=== PATIENT | male | born 1940 | race Caucasian/White ===

== ENCOUNTER 2017-01-31 09:38 | Emergency (ER) | payer MEDICARE, BC ==
[~2017-01-31] VITALS: Ht 170.2 cm; Wt 97.3 kg
[~2017-01-31 09:38] MED LIST: FELODIPINE10 MG PO; GOOD SENSE OMEP20 MG PO; HYDRO PAR25 MG PO; METOPROLOL SUC100 MG PO; SIMVASTATIN20 MG PO
[2017-01-31 09:53] VITALS: TEMP 98.4
[2017-01-31 10:56] LABS: ALANINE AMINOTRANSFERASE 48 U/L (21-72); ALBUMIN 4.6 gm/dL (3.5-5.0); ALKALINE PHOSPHATASE 80 U/L (50-136); ANION GAP 11 mmol/L (7-16); BILIRUBIN,TOTAL 0.8 mg/dL (0.0-1.0); BLOOD UREA NITROGEN 19 mg/dL (9-20); CALCIUM 9.5 mg/dL (8.4-10.2); CARBON DIOXIDE 25 mmol/L (22-30); CHLORIDE 96 mmol/L (98-107); CREATININE, serum 0.94 mg/dL (0.66-1.25); GLUCOSE 97 mg/dL (74-106); POTASSIUM 3.9 mmol/L (3.4-5.0); SODIUM 133 mmol/L (137-145); TOTAL PROTEIN 7.3 gm/dL (6.4-8.2)
[2017-01-31 10:57] LABS: BASO # 0.1 (0.0-0.2); BASO % 0.7 % (0.0-2.0); EOS # 0.2 (0.0-0.7); EOS % 3.3 % (0-4.0); GRAN # 3.7 (1.4-6.5); GRAN % 50.1 % (42.2-75.2); HEMOGLOBIN 13.7 g/dl (13.5-18.0); LYMPH # 2.4 (1.2-3.4); LYMPH % 33.1 % (20.0-51.0); MEAN CELL VOLUME 89 fl (80.0-100.0); MEAN CORPUSCULAR HEMOGLOBIN 31 pg (27.0-31.0); MEAN CORPUSCULAR HGB CONC 34 g/dl (33.0-37.0); MEAN PLATELET VOLUME 9.6 fl (7.4-10.4); MONO # 0.9 (0.1-0.6); MONO % 12.4 % (1.7-9.3); PLATELET COUNT 229 K/mm3 (130-400); RED BLOOD COUNT 4.49 M/mm3 (4.20-5.60); REDCELL DISTRIBUTION WIDTH-CV 12.5 % (11.5-14.5); WHITE BLOOD COUNT 7.3 K/mm3 (4.8-10.8)
[2017-01-31 11:11] LABS: TROPONIN-I < 0.012 ng/mL (0.000-0.034)
[2017-01-31] MEDS ORDERED: SYNTHROID0.05 MG/TA PO (11:25)
[2017-01-31] MEDS ORDERED: NORVASC 10MG10 MG PO (12:06)
[2017-01-31 12:16] VITALS: BP 147/84; PULSE 58
== END 2017-01-31 12:17 | disposition home or self-care (01) ==
LOC: COL.ER 09:38
PROVIDERS: Emergency Medicine
DX: I10 Essential (primary) hypertension (principal); R00.1 Bradycardia, unspecified

== ENCOUNTER 2017-09-20 14:17 | Emergency (ER) | payer MEDICARE, BC ==
[~2017-09-20] VITALS: Ht 170.2 cm; Wt 100.0 kg
[~2017-09-20 14:17] MED LIST changes: +NORVASC 10MG10 MG PO; +SYNTHROID0.05 MG/TA PO
[2017-09-20] MEDS ORDERED: NEURONTIN300 MG/CAP PO (14:33)
[2017-09-20 16:03] LABS: BASO % 0.3 % (0.0-2.0); EOS # 0.2 (0.0-0.7); EOS % 3.4 % (0-4.0); GRAN # 3.1 (1.4-6.5); GRAN % 49.5 % (42.2-75.2); HEMATOCRIT 38.2 % (42.0-52.0); HEMOGLOBIN 13.2 g/dl (13.5-18.0); LYMPH # 2.1 (1.2-3.4); MEAN CELL VOLUME 91 fl (80.0-100.0); MEAN CORPUSCULAR HEMOGLOBIN 31 pg (27.0-31.0); MEAN CORPUSCULAR HGB CONC 35 g/dl (33.0-37.0); MONO # 0.8 (0.1-0.6); MONO % 12.5 % (1.7-9.3); PLATELET COUNT 246 K/mm3 (130-400); RED BLOOD COUNT 4.22 M/mm3 (4.20-5.60); WHITE BLOOD COUNT 6.2 K/mm3 (4.8-10.8)
[2017-09-20 16:04] LABS: COLLECTION METHOD CLEAN CATCH
[2017-09-20 16:12] LABS: PH 6 (5-8); SQUAMOUS EPITHELIAL None Seen /hpf; URINE APPEARANCE Clear; URINE BACTERIA None Seen /hpf; URINE BILIRUBIN Negative (NEGATIVE); URINE BLOOD Negative (NEGATIVE); URINE COLOR Yellow; URINE GLUCOSE Negative (NEGATIVE); URINE KETONE Negative (NEGATIVE); URINE LEUKOCYTE ESTERASE Negative (NEGATIVE); URINE PROTEIN(semi-quant) Negative (NEGATIVE); URINE RBC None Seen /hpf; URINE UROBILINOGEN Negative (NEGATIVE); URINE WBC None Seen /hpf
[2017-09-20 16:22] LABS: ADJUSTED CALCIUM 8.9 mg/dL (8.4-10.2); ALANINE AMINOTRANSFERASE 43 U/L (21-72); ALBUMIN 4.6 gm/dL (3.5-5.0); ALKALINE PHOSPHATASE 81 U/L (50-136); ANION GAP 11 mmol/L (7-16); BILIRUBIN,TOTAL 0.5 mg/dL (0.0-1.0); BLOOD UREA NITROGEN 17 mg/dL (9-20); C-REACTIVE PROTEIN < 0.5 mg/dL (0.0-0.9); CALCIUM 9.4 mg/dL (8.4-10.2); CARBON DIOXIDE 24 mmol/L (22-30); CHLORIDE 97 mmol/L (98-107); CREATININE, serum 0.96 mg/dL (0.66-1.25); GLUCOSE 95 mg/dL (74-106); POTASSIUM 3.5 mmol/L (3.4-5.0); SODIUM 133 mmol/L (137-145); TOTAL PROTEIN 7.4 gm/dL (6.4-8.2)
[2017-09-20 18:11] VITALS: TEMP 97.5
[2017-09-20 20:21] VITALS: BP 162/84; PULSE 64
== END 2017-09-20 20:45 | disposition short-term general hospital (02) ==
LOC: COL.ER 14:17
PROVIDERS: Emergency Medicine
DX: M54.16 Radiculopathy, lumbar region (principal); M96.842 Postprocedural seroma of a musculoskeletal structure following a musculoskeletal system procedure; I10 Essential (primary) hypertension; E03.9 Hypothyroidism, unspecified; E78.5 Hyperlipidemia, unspecified; Z87.11 Personal history of peptic ulcer disease; Z96.652 Presence of left artificial knee joint; Z98.890 Other specified postprocedural states
CPT/HCPCS: J2765; J3010; J7030

== ENCOUNTER → 2018-09-08 | Outpatient (CLI) | payer MEDICARE, BC ==
[~2018-09-08] MED LIST changes: +NEURONTIN300 MG/CAP PO
== END ==
LOC: COL.RAD 10:02
DX: M48.062 Spinal stenosis, lumbar region with neurogenic claudication (principal); M99.73 Connective tissue and disc stenosis of intervertebral foramina of lumbar region; M47.816 Spondylosis without myelopathy or radiculopathy, lumbar region; Z98.1 Arthrodesis status

== ENCOUNTER → 2019-06-24 | Outpatient (CLI) | payer MEDICARE, BC | LOC: COL.RAD 07:39 | DX: Z01.812 Encounter for preprocedural laboratory examination (principal); G31.9 Degenerative disease of nervous system, unspecified; I63.9 Cerebral infarction, unspecified; R20.0 Anesthesia of skin | CPT/HCPCS: A9585 ==

== ENCOUNTER → 2019-06-25 | Outpatient (CLI) | payer MEDICARE, BC | LOC: COL.RAD 08:27 | DX: I67.2 Cerebral atherosclerosis (principal) | CPT/HCPCS: A9585 ==

== ENCOUNTER → 2019-08-31 | Outpatient (CLI) | payer MEDICARE, BC | LOC: COL.RAD 08:46 | DX: M48.062 Spinal stenosis, lumbar region with neurogenic claudication (principal); M47.816 Spondylosis without myelopathy or radiculopathy, lumbar region; M51.36 Other intervertebral disc degeneration, lumbar region; Z98.1 Arthrodesis status ==

== ENCOUNTER 2020-07-05 07:45 | Outpatient (CLI) | payer MEDICARE, BC ==
[~2020-07-05] VITALS: Ht 170.2 cm; Wt 98.0 kg
[2020-07-05 08:28] VITALS: BP 153/75; PULSE 62; TEMP 98.9
[2020-07-05] MEDS ORDERED: HCTZ 25MG TAB25 MG PO (08:39)
[2020-07-05] MEDS ORDERED: NORVASC 5MG5 MG/TAB PO (08:40)
[2020-07-05] MEDS ORDERED: FLOMAX 0.40.4 MG/CAP PO (08:41)
[2020-07-05] MEDS ORDERED: ASPIRIN 32325 MG/TAB PO (08:42)
[2020-07-05] MEDS ORDERED: FISH OIL 1000MG1 CAP PO (08:44)
--- NOTE | 2020-07-05 09:30 | NUR ---
PROCEDURE COMPLETED IN ROOM, DRESSING TO CHEST IS CLEAN AND DRY. PT HAS NO C/O. DRESSED, REVIEWED DISCHARGE INST. WITH PT ON FOLLOWUP APPT, PRECAUTIONS AND WHEN TO SHOWER. VERBAL UNDERSTANDING. PT WAS DISCHARGED AMB. WITH SUPPLIES AND BOX SENT WITH HIM
== END 2020-07-05 09:40 | disposition home or self-care (01) ==
LOC: COL.CAR
DX: I63.9 Cerebral infarction, unspecified (principal); I10 Essential (primary) hypertension; K21.9 Gastro-esophageal reflux disease without esophagitis; E03.9 Hypothyroidism, unspecified; M19.90 Unspecified osteoarthritis, unspecified site; Z85.46 Personal history of malignant neoplasm of prostate; Z85.828 Personal history of other malignant neoplasm of skin; Z79.82 Long term (current) use of aspirin; E78.2 Mixed hyperlipidemia; Z86.718 Personal history of other venous thrombosis and embolism
CPT/HCPCS: 27124; C1764

== ENCOUNTER 2021-06-06 13:17 | Day surgery (SDC) | payer MEDICARE, BC ==
[~2021-06-06] VITALS: Ht 170.2 cm; Wt 96.4 kg
[2021-06-06] VITALS (7 sets, daily range): BP systolic 138–163; BP diastolic 61–72; PULSE 51–60; TEMP 97.6–98.1
[~2021-06-06 13:17] MED LIST changes: +ASPIRIN 32325 MG/TAB PO; +FISH OIL 1000MG1 CAP PO; +FLOMAX 0.40.4 MG/CAP PO; +HCTZ 25MG TAB25 MG PO; +NORVASC 5MG5 MG/TAB PO
[2021-06-06] MEDS ORDERED: NORVASC 5MG5 MG/TAB PO (13:47)
[2021-06-06] MEDS ORDERED: TYLENOL 500MG500 MG PO (13:47)
[2021-06-06] MEDS ORDERED: ASPIRIN 32325 MG/TAB PO (13:48)
[2021-06-06] MEDS ORDERED: HCTZ 25MG TAB25 MG PO (13:49)
[2021-06-06] MEDS ORDERED: EPA FISH OIL1 SGL PO (13:49)
[2021-06-06] MEDS ORDERED: TOPROL XL100 MG PO (13:50)
[2021-06-06] MEDS ORDERED: SYNTHROID0.05 MG/TA PO (13:50)
[2021-06-06] MEDS ORDERED: FLOMAX 0.40.4 MG/CAP PO (13:51)
[2021-06-06] MEDS ORDERED: PRAVACHOL 20MG20 MG PO (13:51)
[2021-06-06] MEDS ORDERED: PYRIDIUM 100MG100 MG PO (16:51)
--- NOTE | 2021-06-06 17:41 | NUR ---
Patient up to room 344 from OR by bed. CBI infusing at fast rate, urine pale yellow, CBI slowed at this time. Post op fluids infusing per orders. Post op VSS. Denies needs at this time.
--- NOTE | 2021-06-06 19:08 | NUR ---
Patient doing well post op. CBI infusing at very slow rate. Urine clear yellow. 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 Patient denies further needs at this time. Reported off to shift lab technician.
[2021-06-07 00:25] VITALS: BP 152/70; PULSE 61; TEMP 97.7
[2021-06-07 04:46] VITALS: BP 13/63; BP 136/63; PULSE 68; TEMP 98.1
--- NOTE | 2021-06-07 06:30 | NUR ---
Patient has been doing well during the night. He got up once to the [facility] and had a small hard stool. Denies pain or nausea. Urine output has been light yellow to light pink. CBI flowing very slowly. He is tolerated clear liquids. Explained the plan for today. Offered to help him get up and walk but he stated his legs still feel weak. No other changes at this time. Call light within reach.
[2021-06-07 07:40] VITALS: BP 128/66; PULSE 71; TEMP 98.3
--- NOTE | 2021-06-07 08:00 | NUR ---
Patient sitting up in bed, watching TV. A&Ox4. VSS. IV CDI. CBI intact. Urine output, yellow, clear. Denies pain and discomfort. Wants to eat solid food, nurse will advance the patients diet. No further needs expressed. Call light within reach
--- NOTE | 2021-06-07 11:00 | NUR ---
Water instilled in bladder before removing leung. 30cc in balloon. Nurse instructed the patient to void in the urinal and inform the nurse when voided. Pericare provided before and after removal. Patient tolerated well. No further needs expressed. Call light within reach
[2021-06-07 12:25] VITALS: BP 129/51; PULSE 70; TEMP 97.4
--- NOTE | 2021-06-07 14:19 | NUR ---
SW met with the patient to discuss discharge plan. The patient lives alone in [place]. He reports independence with ADLs and has a cane and walker available, if needed. His PCP is Dr. Flash Vega and he receives his medications from [facility]. He reports no difficulties obtaining his meds. The patient does not have a DPOA-HC in EMR, but he states that he does have one completed and that it designates his son, David (ph#[phone]). He states that he is and has two children: David and Shabana. The patient plans to return home upon discharge today, with his son providing transportation. No additional needs at this time. *Discharge plan: home*
--- NOTE | 2021-06-07 14:35 | NUR ---
Patient walked with nursing staff to the patient entrance. Discharge paperwork and personal belongings with the patient. No further needs expressed from the patient.
== END 2021-06-07 14:35 | disposition home or self-care (01) ==
LOC: SDCO 13:17 → SURG 17:53 → SDCO 06-07 14:35
DX: C61 Malignant neoplasm of prostate (principal); N40.1 Benign prostatic hyperplasia with lower urinary tract symptoms; R39.12 Poor urinary stream; R35.1 Nocturia; N13.8 Other obstructive and reflux uropathy; M19.90 Unspecified osteoarthritis, unspecified site; G89.29 Other chronic pain; M54.9 Dorsalgia, unspecified; I10 Essential (primary) hypertension; Z79.82 Long term (current) use of aspirin; Z79.899 Other long term (current) drug therapy; Z87.891 Personal history of nicotine dependence
CPT/HCPCS: OP; J0690; J2250; J2405; J2704; J3010; J3480; J7120

== ENCOUNTER 2021-11-07 08:55 | Day surgery (SDC) | payer MEDICARE, BC ==
[~2021-11-07] VITALS: Ht 170.2 cm; Wt 101.9 kg
[~2021-11-07 08:55] MED LIST changes: +EPA FISH OIL1 SGL PO; +PRAVACHOL 20MG20 MG PO; +PYRIDIUM 100MG100 MG PO; +TOPROL XL100 MG PO; +TYLENOL 500MG500 MG PO
[2021-11-07 09:15] VITALS: BP 106/58; PULSE 71; TEMP 97
[2021-11-07] MEDS ORDERED: COZAAR100 MG PO (09:26)
[2021-11-07] MEDS ORDERED: ASPIRIN 81M81 MG/TA2 PO (09:27)
[2021-11-07 11:17] VITALS: BP 92/48; PULSE 57; TEMP 97.2
--- NOTE | 2021-11-07 11:17 | NUR ---
The patient arrived back to [facility] from the operating room at this time. Vital signs were started at this time. The patient appears drowsy but arouses to his name. Son at bedside. Catheter in place and secured to bed. Call light is within reach. Will continue to monitor the patient.
[2021-11-07] MEDS ORDERED: PYRIDIUM 100MG100 MG PO (11:18)
[2021-11-07 11:32] VITALS: BP 108/52; PULSE 56
--- NOTE | 2021-11-07 11:32 | NUR ---
The patient appears more alert and agrees to try some cranberry juice and a muffin at this time. The patient's son remains at his bedside. Will continue to monitor the patient.
[2021-11-07 11:47] VITALS: BP 93/53; PULSE 58
--- NOTE | 2021-11-07 11:47 | NUR ---
The patient appears to be tolerating the food and drink well. The patient wants to be discharged home with a leg bag and the nurse will be educating the patient on how to use the leg bag.
[2021-11-07 12:05] VITALS: BP 115/45; PULSE 60
--- NOTE | 2021-11-07 12:05 | NUR ---
Leg bag catheter teaching was completed with the patient and his son at this time. They both verbalized understanding and have no questions for the nurse at this time. The nurse instructed the patient to get dressed and notify the staff when he is ready to review his discharge instructions.
--- NOTE | 2021-11-07 12:30 | NUR ---
Discharge instructions were reviewed with the patient and his son at this time. They both verbalized understanding and have no questions for the nurse at this time. The patient's IV to his right hand was removed and a pressure dressing was applied to the site. The patient is ready to be escorted out.
--- NOTE | 2021-11-07 12:40 | NUR ---
The patient was escorted out via wheelchair to a private vehicle by RAHUL Meek. The patient's belongings and discharge paperwork were sent with him. The patient's son is present to drive him home.
== END 2021-11-07 12:40 | disposition home or self-care (01) ==
LOC: SDCO 08:55
DX: N32.0 Bladder-neck obstruction (principal); R39.12 Poor urinary stream; R35.1 Nocturia; C61 Malignant neoplasm of prostate; I10 Essential (primary) hypertension; K21.9 Gastro-esophageal reflux disease without esophagitis; M19.90 Unspecified osteoarthritis, unspecified site; M54.9 Dorsalgia, unspecified; G89.29 Other chronic pain; Z79.890 Hormone replacement therapy; Z79.899 Other long term (current) drug therapy; Z87.891 Personal history of nicotine dependence
CPT/HCPCS: J0690; J2704; J3010; J3301; J7120

== ENCOUNTER 2022-09-03 19:59 | Observation (INO) | payer MEDICARE, BC ==
[~2022-09-03] VITALS: Ht 170.2 cm; Wt 96.0 kg
[~2022-09-03 19:59] MED LIST changes: +COZAAR100 MG PO
[2022-09-03 20:11] VITALS: O2SAT 97
[2022-09-03 20:24] LABS: BASO % 0.4 % (0.0-2.0); EOS # 0.2 K/mm3 (0.0-0.7); EOS % 3.1 % (0.0-4.0); GRAN # 3.9 K/mm3 (1.4-6.5); GRAN % 51.4 % (42.2-75.2); HEMATOCRIT 37.2 % (42.0-52.0); HEMOGLOBIN 12.6 g/dl (13.5-18.0); LYMPH # 2.4 K/mm3 (1.2-3.4); LYMPH % 31.4 % (20.0-51.0); MEAN CELL VOLUME 91 fl (80.0-100.0); MEAN CORPUSCULAR HEMOGLOBIN 31 pg (27-31); MEAN CORPUSCULAR HGB CONC 34 g/dl (33.0-37.0); MEAN PLATELET VOLUME 9.5 fl (7.4-10.4); MONO % 13.6 % (1.7-9.3); PLATELET COUNT 217 K/mm3 (130-400); RED BLOOD COUNT 4.07 M/mm3 (4.20-5.60)
[2022-09-03 20:42] LABS: ALBUMIN 3.9 gm/dL (3.4-4.8); ANION GAP 10 mmol/L (7-16); BLOOD UREA NITROGEN 29 mg/dL (8-26); CALCIUM 9.2 mg/dL (8.4-10.2); CARBON DIOXIDE 23 mmol/L (23-31); CHLORIDE 104 mmol/L (98-107); CREATININE, serum 1.73 mg/dL (0.72-1.25); GLUCOSE 98 mg/dL (70-99); MAGNESIUM 2.2 mg/dL (1.6-2.6); PHOSPHOROUS 4.2 mg/dL (2.3-4.7); POTASSIUM 4.2 mmol/L (3.5-4.5); SODIUM 137 mmol/L (136-145)
[2022-09-03 20:49] LABS: TROPONIN-I < 0.010 ng/mL (0.00-0.033)
[2022-09-03 23:04] LABS: COLLECTION METHOD CLEAN CATCH
[2022-09-03 23:11] LABS: PH 6.5 (5.0-8.5); URINE APPEARANCE Clear (CLEAR/HAZY); URINE BLOOD Negative (NEGATIVE); URINE COLOR Yellow (YELLOW); URINE GLUCOSE Negative (NEGATIVE); URINE KETONE Negative (NEGATIVE); URINE NITRATE Negative (NEGATIVE); URINE PROTEIN(semi-quant) Negative (NEGATIVE); URINE UROBILINOGEN 0.2 E.U/dL (0.2-1.0)
[2022-09-03 23:12] LABS: SQUAMOUS EPITHELIAL None Seen /hpf (0-10); URINE BACTERIA None Seen /hpf (NONE SEEN); URINE RBC 0-2 /hpf (0-2)
[2022-09-03 23:27] VITALS: BP 171/77; PULSE 76; TEMP 98.2
[2022-09-03] MEDS ORDERED: ALDACTONE 25MG25 M1 PO (23:52)
[2022-09-03] MEDS ORDERED: KLOR-CON M1010 MEQ PO (23:53)
[2022-09-03] MEDS ORDERED: COZAAR100 MG PO (23:53)
[2022-09-03] MEDS ORDERED: TOPROL XL 25MG25 MG PO (23:53)
[2022-09-03] MEDS ORDERED: LYRICA 50MG CAP50 MG PO (23:53)
[2022-09-03] MEDS ORDERED: NORVASC 5MG5 MG/TAB PO (23:53)
[2022-09-03] MEDS ORDERED: LASIX 40MG TABL40 MG PO (23:55)
--- NOTE | 2022-09-03 23:56 | NUR ---
2320 PT ARRIVED TO ROOM 330 IN A WHEELCHAIR, PT AMBULATED WITH STEADY GATE FROM THE WHEELCHAIR TO THE BED. PT IS ALERT AND ORIENTED X4, SPEECH CLEAR, LUNG SOUNDS CLEAR TO AUSCULTATION. BILATERAL ANKLES AND FEET HAVE NONPITTING EDEMA, MEDICATIONS REVIEWED WITH PATIENT, PT STATED THAT HE DOES NOT REMEMBER THE NAME OF HIS MEDICATIONS BUT HE DOES HAVE AN UPDATED LIST AT HOME THAT A FRIEND CAN BRING UP TOMORROW. PT WAS ORIENTED TO THE ROOM AND HOW TO USE CALL LIGHT. PT DENIES ANY WEAKNESS, DIZZINESS, OR PAIN AT THIS TIME. ADMISSION COMPLETED. PT ASKED IF HE CAN EAT TURKEY BOX, WATER AND NONSLIP SOCKS PROVIDED.
[2022-09-04 01:15] VITALS: BP 132/62
[2022-09-04 04:36] VITALS: BP 158/88; PULSE 72; TEMP 97.4
[2022-09-04 07:56] VITALS: BP 157/73; PULSE 69; TEMP 97.7
[2022-09-04 08:26] LABS: BASO % 0.5 % (0.0-2.0); EOS # 0.2 K/mm3 (0.0-0.7); EOS % 3.6 % (0.0-4.0); GRAN # 3.2 K/mm3 (1.4-6.5); GRAN % 48.3 % (42.2-75.2); HEMATOCRIT 39.2 % (42.0-52.0); HEMOGLOBIN 13.2 g/dl (13.5-18.0); LYMPH # 2.3 K/mm3 (1.2-3.4); LYMPH % 34.7 % (20.0-51.0); MEAN CELL VOLUME 91 fl (80.0-100.0); MEAN CORPUSCULAR HEMOGLOBIN 31 pg (27-31); MEAN CORPUSCULAR HGB CONC 34 g/dl (33.0-37.0); MEAN PLATELET VOLUME 9.5 fl (7.4-10.4); MONO # 0.8 K/mm3 (0.1-0.6); MONO % 12.6 % (1.7-9.3); PLATELET COUNT 220 K/mm3 (130-400); RED BLOOD COUNT 4.29 M/mm3 (4.20-5.60); REDCELL DISTRIBUTION WIDTH-CV 13.1 % (11.5-14.5)
[2022-09-04 08:42] LABS: CREATININE, serum 1.1 mg/dL (0.72-1.25); MAGNESIUM 2.3 mg/dL (1.6-2.6); POTASSIUM 4.1 mmol/L (3.5-4.5)
[2022-09-04] MEDS ORDERED: ALEVE 220MG220 MG PO (08:51)
--- NOTE | 2022-09-04 09:53 | NUR ---
Initial visit; Patient thanked [employer] for looking in on him and offering prayer for healing and God's blessings.
[2022-09-04 11:56] VITALS: BP 165/71; PULSE 72; TEMP 97.5
[2022-09-04 11:57] VITALS: BP 128/70; PULSE 80
[2022-09-04 12:31] VITALS: BP 172/74; PULSE 68
--- NOTE | 2022-09-04 12:41 | NUR ---
Cost Manager met with patient to discuss discharge planning. Patient lives in [place] and sees Dr. Vega for primary care. Patient obtains medications from [facility] with no difficulties and does not use any DME. Patient is independent with ADLS and plans to return home at time of discharge. Patient reports his son, David (ph#[phone]) is his DPOA-HC. SW asked patient if he has plans to vote today. Patient is a [facility] resident so DANNIELLE cannot assist with obtaining ballot. PT/OT ordered. Discharge Plan: Home
[2022-09-04] MEDS ORDERED: LASIX 20MG TABL20 MG PO (14:51)
== END 2022-09-04 15:00 | disposition home or self-care (01) ==
LOC: COL.ER 19:59 → SURG 22:14
PROVIDERS: Emergency Medicine; Nurse Practitioner Family; Physician Assistant; ADMIT Student in an Organized Health Care Education/Training Program
DX: R55 Syncope and collapse (principal); I69.398 Other sequelae of cerebral infarction; I10 Essential (primary) hypertension; R20.2 Paresthesia of skin; E78.5 Hyperlipidemia, unspecified; N17.9 Acute kidney failure, unspecified; D64.9 Anemia, unspecified; R00.1 Bradycardia, unspecified; R60.0 Localized edema; Z20.822 Contact with and (suspected) exposure to COVID-19; N40.0 Benign prostatic hyperplasia without lower urinary tract symptoms; C61 Malignant neoplasm of prostate; E03.9 Hypothyroidism, unspecified; Z79.899 Other long term (current) drug therapy; Z79.890 Hormone replacement therapy; Z79.82 Long term (current) use of aspirin; Z95.818 Presence of other cardiac implants and grafts; Z85.828 Personal history of other malignant neoplasm of skin
CPT/HCPCS: G0378; J0360; J1644; J7030

== ENCOUNTER 2024-04-17 10:59 | Emergency (ER) | payer MEDICARE, BC ==
[~2024-04-17] VITALS: Ht 170.2 cm; Wt 97.7 kg
[~2024-04-17 10:59] MED LIST changes: +ALDACTONE 25MG25 M1 PO; +ALEVE 220MG220 MG PO; +CEPHALEXIN500 M1 PO; +K-TAB10 PO; +KLOR-CON M1010 MEQ PO; +LASIX 20MG TABL20 MG PO; +LASIX 40MG TABL40 MG PO; +LYRICA 50MG CAP50 MG PO; +NORCO 325 MG-51 TAB PO; +TOPROL XL 25MG25 MG PO
[2024-04-17 11:03] VITALS: TEMP 98
[2024-04-17] MEDS ORDERED: Morphine 10 MG/ML VIAL IM ONE (13:15)
[2024-04-17] MEDS ORDERED: NORCO 325 MG-51 TAB PO (14:34)
[2024-04-17 14:59] VITALS: BP 166/88; PULSE 78
[2024-04-21] MEDS ORDERED: NORCO 325 MG-51 TAB PO (14:33)
== END 2024-04-17 15:00 | disposition home or self-care (01) ==
LOC: COL.ER 10:59
DX: M84.421A Pathological fracture, right humerus, initial encounter for fracture (principal)
CPT/HCPCS: J2270

== ENCOUNTER → 2024-07-17 | Outpatient (CLI) | payer MEDICARE, BC ==
[~2024-07-17] MED LIST changes: +MEDROL 4MG DOSPA4 MG PO; +ULTRAM 50MG TAB50 MG PO
== END ==
LOC: COL.RAD 09:30
DX: S42.401K Unspecified fracture of lower end of right humerus, subsequent encounter for fracture with nonunion (principal)

== ENCOUNTER 2024-07-21 12:17 | Emergency (ER) | payer MEDICARE, BC ==
[~2024-07-21] VITALS: Ht 170.2 cm; Wt 97.7 kg
[~2024-07-21 12:17] MED LIST changes: -MEDROL 4MG DOSPA4 MG PO
[2024-07-21 12:25] VITALS: TEMP 97.9
[2024-07-21] MEDS ORDERED: oxyCODONE/Acetaminophen 5-325 MG TAB PO ONE (14:30)
[2024-07-21] MEDS ORDERED: MEDROL 4MG DOSPA4 MG PO (14:33)
[2024-07-21] MEDS ORDERED: NORCO 325 MG-51 TAB PO (14:33)
[2024-07-21 14:45] VITALS: BP 183/74; PULSE 67
== END 2024-07-21 14:45 | disposition home or self-care (01) ==
LOC: COL.ER 12:17
DX: R07.89 Other chest pain (principal)